=== PATIENT | male | born 1945 | race Caucasian/White ===

== ENCOUNTER 2020-07-26 06:41 | Inpatient (IN) ==
[2020-07-26] MEDS ORDERED: IOPAMIDOL 100 ML BOTTLE IV ONE ×2 (06:42→14:48)
[2020-07-26] MEDS ORDERED: 0.9 % SODIUM CHLORIDE 1,000 ML IV ONE ×6 (07:11→14:48)
--- NOTE | 2020-07-26 07:19 | Emergency Department Note ---
Weakness HPI General Chief complaint: Weakness Stated complaint: took several pills Time Seen by Provider: 07/26/20 06:51 Source: patient, family, RN notes reviewed and old records reviewed Mode of arrival: wheelchair Limitations: no limitations History of Present Illness HPI Narrative: Narrative: 75-year-old male brought in by this morning for weakness. Patient was on the toilet and had difficulty standing up and fell to his right knee. Patient states that he has not been drinking for quite some time and started drinking last night secondary to his back pain. Patient then took 6 hydrocodone, Mucinex, cough syrup. Patient complains of feeling sleepy and tired and weak all over he denies focal weakness he denies loss of bowel or bladder control he denies difficulty with speaking other than he feels very sleepy. He denies suicidal ideation or intent to harm himself he states that he just wanted his back to stop hurting in his he could go to sleep MD Complaint: generalized weakness and lack of energy Onset (ago): hour(s) (Night prior to arrival) Duration: now resolved Location: generalized Migration: none Severity: moderate Improves with: rest Worsens with: exertion Context: other Associated symptoms: Denies chest pain, confusion, dark stools, diaphoresis, dysuria, easy bruising, fever/chills, headaches, loss of appetite, nausea/vomiting, myalgias, rash, shortness of breath and syncope Related Data Home Medications Medication Instructions Recorded Confirmed amlodipine 10 mg PO HS 08/27/14 03/30/20 aspirin 81 mg PO HS 08/27/14 03/30/20 cetirizine 10 mg PO DAILY 08/27/14 03/30/20 fluticasone propionate 2 spray NS DAILY 08/27/14 03/30/20 hydrochlorothiazide 25 mg PO DAILY 08/27/14 03/30/20 losartan 100 mg PO DAILY 08/27/14 03/30/20 milk thistle 1,000 mg PO DAILY 08/27/14 03/30/20 mometasone-formoterol 2 puff IH BIDP PRN 08/27/14 03/30/20 pantoprazole 40 mg PO QAMAC 08/27/14 03/30/20 fluticasone propion-salmeterol 1 puff INH DAILY 12/03/14 03/30/20 sildenafil 50 mg PO PRN PRN 12/03/14 03/30/20 acyclovir 400 mg tablet 200 mg PO BID tab 01/20/17 03/30/20 lovastatin 10 mg tablet 20 mg PO HS tab 01/20/17 03/30/20 Previous Rx's Medication Instructions Recorded mirtazapine 15 mg tablet See Rx Instructions .ROUTE 12/31/19 .COMPLEX #30 tablet gabapentin 300 mg capsule See Rx Instructions .ROUTE 07/07/20 .COMPLEX #90 capsule naltrexone 50 mg tablet 50 mg PO QDAY #30 tab 07/07/20 Allergies Allergy/AdvReac Type Severity Reaction Status Date / Time doxycycline AdvReac Mild Fatigued Verified 07/26/20 06:53 milk AdvReac Mild Nausea Verified 07/26/20 06:53 environmental Allergy Unknown Unknown Uncoded 07/18/20 14:58 MSG Allergy Unknown Unconscious Uncoded 07/18/20 14:58 Review of Systems ROS ROS Narrative: Narrative: All systems ED: reviewed and negative except as stated. [facility] Narrative Patient History Narrative: Narrative: Medical/Surgical/Family History All Active Problems (Updated 07/26/20 @ 12:28 by Micah Ulloa MD) Hypoxia (Acute) Hypotension (Acute) Overdose (Acute) Pulmonary emboli (Acute) Acute URI (Acute) Pharyngitis (Acute) Arthritis (Acute) Benign prostatic hypertrophy with lower urinary tract symptoms (LUTS) (Acute) DDD (degenerative disc disease) (Acute) Headache (Acute) Hearing loss (Acute) Hernia of abdominal cavity (Acute) Shingles (Acute) Hyperlipidemia (Acute) Hypertension (Acute) Nocturia (Acute) Post-void dribbling (Acute) Chronic sinusitis (Acute) Peptic ulcer (Acute) Urinary hesitancy (Acute) History of hernia surgery (Acute) Lumbar stenosis (Acute) Chest pain of unknown etiology (Acute) Uvulitis (Acute) Viral upper respiratory tract infection (Acute) Dizziness (Acute) Abscess (Acute) Alcohol withdrawal delirium (Acute) Alcohol withdrawal (Acute) Sedative hypnotic or anxiolytic dependence (Acute) Insomnia (Acute) Alcohol use disorder, mild, in sustained remission, abuse (Acute) Sedative hypnotic or anxiolytic dependence (Acute) Insomnia (Acute) Medical History (Updated 07/26/20 @ 12:28 by Micah Ulloa MD) Arthritis Benign prostatic hypertrophy with lower urinary tract symptoms (LUTS) Chest pain of unknown etiology Chronic sinusitis DDD (degenerative disc disease) Headache Hearing loss Hernia of abdominal cavity Hyperlipidemia Hypertension Lumbar stenosis Nocturia Peptic ulcer Post-void dribbling Shingles Urinary hesitancy Surgical History History of hernia surgery 2005 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 Family History Mother Rheumatoid arthritis Brother Acute myocardial infarction Father Pneumonia Unknown Essential hypertension affecting in third trimester Family/Other Alcoholism /alcohol abuse Social History Smoking Status: Former smoker Alcohol Intake Frequency: former alcohol drinker Substance Use: does not use Exam Narrative Narrative: Narrative: General Limitations: no limitations General appearance: Present appears intoxicated, in no apparent distress, lethargic and obese Head Head: Present atraumatic, normocephalic and normal inspection Eye Eye: Present normal appearance, PERRL and EOMI; Absent scleral icterus and conjunctival injection ENT ENT: Present normal oropharynx and mucous membranes moist Neck Neck: Present normal inspection, full ROM and trachea midline; Absent tenderness, lymphadenopathy and thyromegaly Chest Chest: Present normal inspection and symmetric chest wall rise; Absent tenderness Respiratory Respiratory: Present wheezes; Absent normal lung sounds bilaterally, respiratory distress, stridor, accessory muscle use and prolonged expiratory phase Cardiovascular Cardiovascular: Present regular rate and normal rhythm; Absent systolic murmur and diastolic murmur Adbominal Abdominal: Present soft and normal bowel sounds; Absent distention, tenderness, guarding, rebound, rigidity, organomegaly, Dyer's sign, tenderness at McBurney's Point, ascites, mass, pulsatile mass and hernia Extremities Extremities: Present normal inspection, full ROM, tenderness, normal capillary refill and other (Abrasion to left knee); Absent pedal edema, pretibial edema and calf tenderness Back Back: Present normal inspection and full ROM; Absent tenderness, CVA tenderness (R), CVA tenderness (L) and spinous process tenderness Neurological Neurological: Present alert and oriented X3; Absent motor sensory deficit Psychiatric Psychiatric: Present normal affect and normal mood Skin Skin: Present warm (WNL) and dry Course Vital Signs Vital signs: Vital Signs Temperature 98.0 F 07/26/20 06:44 Pulse Rate 81 07/26/20 06:44 Respiratory Rate 18 07/26/20 06:44 Blood Pressure 132/70 07/26/20 06:44 Pulse Oximetry (%) 93 07/26/20 06:44 Temperature 97.9 F 07/26/20 08:15 Pulse Rate 93 H 07/26/20 10:31 Respiratory Rate 18 07/26/20 10:31 Blood Pressure 120/73 07/26/20 10:31 Pulse Oximetry (%) 95 07/26/20 10:31 MDM MDM Narrative Medical decision making narrative: Narrative: 75-year-old male with polysubstance overdose unintentional and not suicidal. He continues to run low blood pressures after repeated fluid boluses and is hypoxic when he is not on O2 this male be a result of his hydrocodone overdose and he has a nonfocal exam but chest x-ray is without pneumonia. I do not feel that he is stable for discharge and will need to be on oxygen and IV fluids to maintain his blood pressure and O2 saturation. CTA is positive for PE with small clot volume and groundglass infiltrates Differential Diagnosis Differential Diagnosis: Overdose, pneumonia, PE, pneumothorax, ARDS, COPD, Medical Records Medical records reviewed: Yes I reviewed the patient's medical records. Lab Data Lab results reviewed: Yes I reviewed the patient's lab results. Result diagrams: 07/26/20 07:20 07/26/20 07:20 Labs: Lab Results 07/26/20 07/26/20 07/26/20 Range/Units 07:20 07:20 07:20 WBC 18.1 H (4.5-11.0) K/mcL RBC 4.42 L (4.50-5.90) M/mcL Hgb 12.6 L (13.5-16.5) g/dL Hct 37.9 L (41.0-55.0) % MCV 85.7 (80.0-100.0) fL MCH 28.5 (26.0-34.0) pg MCHC 33.2 (31.0-36.0) g/dL RDW 14.9 H (11.5-14.5) % Plt Count 376 (140-440) K/mcL MPV 9.7 (7.4-10.4) fL Neut % (Auto) 80.6 H (38.0-78.0) % Lymph % (Auto) 11.5 L (15.0-49.0) % [place] % (Auto) 7.1 (1.0-12.0) % Eos % (Auto) 0.6 (0.0-7.0) % Baso % (Auto) 0.2 (0.0-2.0) % Lymph # (Auto) 2.08 (1.50-4.80) K/mcL [place] # (Auto) 1.29 H (0.10-0.90) K/mcL Eos # (Auto) 0.11 (0.00-0.70) K/mcL Baso # (Auto) 0.03 (0.00-0.20) K/mcL Absolute Neutrophils 14.55 H (1.80-8.00) K/mcL VBG Lactic Acid (0.5-2.0) mmol/L Sodium 127 L (133-145) mmol/L Potassium 3.0 L (3.3-5.1) mmol/L Chloride 94 L (96-108) mmol/L Carbon Dioxide 14 L (22-30) mmol/L Anion Gap 19.0 H (8.0-16.0) BUN 18 (8-23) mg/dL Creatinine 1.2 (0.7-1.2) mg/dL GFR Calculation 60 Glucose 102 (70-105) mg/dL Calcium 7.3 L (8.6-10.4) mg/dL Total Bilirubin 0.3 (0.1-1.0) mg/dL AST 18 (<40) U/L ALT 13 (<40) U/L Alkaline Phosphatase 86 (39-117) U/L Troponin T < 0.01 (<0.03) ng/mL Total Protein 5.9 (5.9-8.4) gm/dL Albumin 3.5 (3.2-5.2) gm/dL Globulin 2.4 (2.2-3.7) gm/dL Albumin/Globulin Ratio 1.5 (1.0-2.3) Urine Color Urine Appearance (Clear) Urine pH (5.0-9.0) Ur Specific [place] (1.000-1.035) Urine Protein (Negative) mg/dL Urine Glucose (UA) (Negative) mg/dL Urine Ketones (Negative) mg/dL Urine Occult Blood (Negative) mg/dL Urine Nitrate (Negative) Urine Bilirubin (Negative) mg/dL Urine Urobilinogen mg/dL Ur Leukocyte Esterase (Negative) /ug Urine Opiates Screen Ur Opiates Confirm Ur Oxycodone Screen Urine Methadone Screen Ur Methadone Confirm Acetaminophen ug/mL Ur Barbiturates Screen Ur Barbiturate Confirm Ur Phencyclidine Scrn Urine PCP Confirm Ur Amphetamines Screen U Amphetamines Confirm U Benzodiazepines Scrn U Benzodiazepine Confm Urine Cocaine Screen Urine Cocaine Confirm U Cannabinoids Confirm U Marijuana (THC) Screen Ethyl Alcohol (<0.010) gm/dL 07/26/20 07/26/20 07/26/20 Range/Units 07:20 07:26 10:25 WBC (4.5-11.0) K/mcL RBC (4.50-5.90) M/mcL Hgb (13.5-16.5) g/dL Hct (41.0-55.0) % MCV (80.0-100.0) fL MCH (26.0-34.0) pg MCHC (31.0-36.0) g/dL RDW (11.5-14.5) % Plt Count (140-440) K/mcL MPV (7.4-10.4) fL Neut % (Auto) (38.0-78.0) % Lymph % (Auto) (15.0-49.0) % [place] % (Auto) (1.0-12.0) % Eos % (Auto) (0.0-7.0) % Baso % (Auto) (0.0-2.0) % Lymph # (Auto) (1.50-4.80) K/mcL [place] # (Auto) (0.10-0.90) K/mcL Eos # (Auto) (0.00-0.70) K/mcL Baso # (Auto) (0.00-0.20) K/mcL Absolute Neutrophils (1.80-8.00) K/mcL VBG Lactic Acid (0.5-2.0) mmol/L Sodium (133-145) mmol/L Potassium (3.3-5.1) mmol/L Chloride (96-108) mmol/L Carbon Dioxide (22-30) mmol/L Anion Gap (8.0-16.0) BUN (8-23) mg/dL Creatinine (0.7-1.2) mg/dL GFR Calculation Glucose (70-105) mg/dL Calcium (8.6-10.4) mg/dL Total Bilirubin (0.1-1.0) mg/dL AST (<40) U/L ALT (<40) U/L Alkaline Phosphatase (39-117) U/L Troponin T (<0.03) ng/mL Total Protein (5.9-8.4) gm/dL Albumin (3.2-5.2) gm/dL Globulin (2.2-3.7) gm/dL Albumin/Globulin Ratio (1.0-2.3) Urine Color Urine Appearance (Clear) Urine pH (5.0-9.0) Ur Specific [place] (1.000-1.035) Urine Protein (Negative) mg/dL Urine Glucose (UA) (Negative) mg/dL Urine Ketones (Negative) mg/dL Urine Occult Blood (Negative) mg/dL Urine Nitrate (Negative) Urine Bilirubin (Negative) mg/dL Urine Urobilinogen mg/dL Ur Leukocyte Esterase (Negative) /ug Urine Opiates Screen None detected Ur Opiates Confirm TNP Ur Oxycodone Screen None detected Urine Methadone Screen None detected Ur Methadone Confirm TNP Acetaminophen 8.7 ug/mL Ur Barbiturates Screen None detected Ur Barbiturate Confirm TNP Ur Phencyclidine Scrn None detected Urine PCP Confirm TNP Ur Amphetamines Screen None detected U Amphetamines Confirm TNP U Benzodiazepines Scrn None detected U Benzodiazepine Confm TNP Urine Cocaine Screen None detected Urine Cocaine Confirm TNP U Cannabinoids Confirm TNP U Marijuana (THC) Screen None detected Ethyl Alcohol 0.055 H (<0.010) gm/dL 07/26/20 07/26/20 Range/Units 10:25 10:40 WBC (4.5-11.0) K/mcL RBC (4.50-5.90) M/mcL Hgb (13.5-16.5) g/dL Hct (41.0-55.0) % MCV (80.0-100.0) fL MCH (26.0-34.0) pg MCHC (31.0-36.0) g/dL RDW (11.5-14.5) % Plt Count (140-440) K/mcL MPV (7.4-10.4) fL Neut % (Auto) (38.0-78.0) % Lymph % (Auto) (15.0-49.0) % [place] % (Auto) (1.0-12.0) % Eos % (Auto) (0.0-7.0) % Baso % (Auto) (0.0-2.0) % Lymph # (Auto) (1.50-4.80) K/mcL [place] # (Auto) (0.10-0.90) K/mcL Eos # (Auto) (0.00-0.70) K/mcL Baso # (Auto) (0.00-0.20) K/mcL Absolute Neutrophils (1.80-8.00) K/mcL VBG Lactic Acid 1.7 (0.5-2.0) mmol/L Sodium (133-145) mmol/L Potassium (3.3-5.1) mmol/L Chloride (96-108) mmol/L Carbon Dioxide (22-30) mmol/L Anion Gap (8.0-16.0) BUN (8-23) mg/dL Creatinine (0.7-1.2) mg/dL GFR Calculation Glucose (70-105) mg/dL Calcium (8.6-10.4) mg/dL Total Bilirubin (0.1-1.0) mg/dL AST (<40) U/L ALT (<40) U/L Alkaline Phosphatase (39-117) U/L Troponin T (<0.03) ng/mL Total Protein (5.9-8.4) gm/dL Albumin (3.2-5.2) gm/dL Globulin (2.2-3.7) gm/dL Albumin/Globulin Ratio (1.0-2.3) Urine Color Yellow Urine Appearance Clear (Clear) Urine pH 5.0 (5.0-9.0) Ur Specific [place] 1.014 (1.000-1.035) Urine Protein Negative (Negative) mg/dL Urine Glucose (UA) Negative (Negative) mg/dL Urine Ketones Negative (Negative) mg/dL Urine Occult Blood Negative (Negative) mg/dL Urine Nitrate Negative (Negative) Urine Bilirubin Negative (Negative) mg/dL Urine Urobilinogen Negative mg/dL Ur Leukocyte Esterase Negative (Negative) /ug Urine Opiates Screen Ur Opiates Confirm Ur Oxycodone Screen Urine Methadone Screen Ur Methadone Confirm Acetaminophen ug/mL Ur Barbiturates Screen Ur Barbiturate Confirm Ur Phencyclidine Scrn Urine PCP Confirm Ur Amphetamines Screen U Amphetamines Confirm U Benzodiazepines Scrn U Benzodiazepine Confm Urine Cocaine Screen Urine Cocaine Confirm U Cannabinoids Confirm U Marijuana (THC) Screen Ethyl Alcohol (<0.010) gm/dL Radiology Data Radiology results reviewed: Yes I reviewed the patient's radiology results. Radiology results narrative: Chest x-ray NAD EKG Data EKG #1: EKG attestation: Yes I reviewed and interpreted this EKG. EKG shows normal: sinus rhythm Rate: normal (79) Rhythm: NSR [place]/QRS: normal Heart block present: None ST segment elevation in: None ST segment depression in: None Q waves: None T wave inversions noted in: None Hyperacute T waves: None QTc: normal QRS morphology: Present normal Interpretation: normal EKG Pulse Oximetry Data Pulse Ox %: 84 Interpretation: The patient is hypoxic when he is not on oxygen Discharge Plan Patient/Caregiver Discharge Instructions Pt seen by SOFTWARE LICENSING SPECIALIST/PA only: No Clinical Impression: Hypoxia, Hypotension, Overdose, Pulmonary emboli Patient Disposition: Xfer As Inpt ([facility]) Follow up with: Blanca James MD [Primary Care Provider] - Prescriptions: No Action mirtazapine 15 mg tablet See Rx Instructions .ROUTE .COMPLEX Qty: 30 RF: 2 naltrexone 50 mg tablet 50 mg PO QDAY Qty: 30 RF: 2 gabapentin 300 mg capsule See Rx Instructions .ROUTE .COMPLEX Qty: 90 RF: 2 acyclovir 400 mg tablet 200 mg PO BID RF: 0 cetirizine 10 MG tablet 10 mg PO DAILY RF: 0 milk thistle 500 MG capsule 1,000 mg PO DAILY RF: 0 aspirin 81 MG tablet,delayed release (DR/EC) 81 mg PO HS RF: 0 amlodipine 10 MG tablet 10 mg PO HS RF: 0 pantoprazole 40 MG tablet 40 mg PO QAMAC RF: 0 hydrochlorothiazide 25 MG tablet 25 mg PO DAILY RF: 0 losartan 100 MG tablet 100 mg PO DAILY RF: 0 fluticasone propionate 1 SPRAY spray,suspension 2 spray NS DAILY RF: 0 mometasone-formoterol 13 GM HFA aerosol inhaler 2 puff IH BIDP PRN (Reason: Cough) RF: 0 lovastatin 10 MG tablet 20 mg PO HS RF: 0 fluticasone propion-salmeterol 1 PUFF inhaler 1 puff INH DAILY RF: 0 sildenafil 50 MG tablet 50 mg PO PRN PRN (Reason: Erectile Dysfunction) RF: 0
[2020-07-26] MEDS ORDERED: ALBUTEROL SULFATE 2.5 MG/3 ML NEBULIZER NEB ONE (07:50)
[2020-07-26] MEDS ORDERED: ONDANSETRON 4 MG/2 ML VIAL IV ONE ×2 (08:18→14:48)
[2020-07-26 08:22] LABS: Basophils # (Auto) 0.03 K/mcL (0.00-0.20); Basophils % (Auto) 0.2 % (0.0-2.0); Eosinophils # (Auto) 0.11 K/mcL (0.00-0.70); Eosinophils % (Auto) 0.6 % (0.0-7.0); Hematocrit 37.9 % (41.0-55.0); Hemoglobin 12.6 g/dL (13.5-16.5); Lymphocytes # (Auto) 2.08 K/mcL (1.50-4.80); Lymphocytes % (Auto) 11.5 % (15.0-49.0); Mean Cell Volume 85.7 fL (80.0-100.0); Mean Corpuscular HGB Conc 33.2 g/dL (31.0-36.0); Mean Platelet Volume 9.7 fL (7.4-10.4); Monocytes # (Auto) 1.29 K/mcL (0.10-0.90); Monocytes % (Auto) 7.1 % (1.0-12.0); Neutrophils % (Auto) 80.6 % (38.0-78.0); Platelet Count 376 K/mcL (140-440); RBC 4.42 M/mcL (4.50-5.90); Red Cell Distribution Width 14.9 % (11.5-14.5); WBC 18.1 K/mcL (4.5-11.0)
[2020-07-26 08:25] LABS: Alcohol,Blood 0.055 gm/dL (<0.010)
--- NOTE | 2020-07-26 08:29 | XRay Report ---
INDICATION: Weakness TECHNIQUE: AP portable semi- chest x-ray COMPARISON: Previous chest x-rays dated 05/06/2019, 12/26/2018 FINDINGS: Lungs:Lungs are negative. No focal pulmonary parenchymal infiltrate or mass Heart, vascular:No significant cardiomegaly. Pulmonary vascularity is normal. No pulmonary edema or pulmonary congestion Mediastinum, shiva:No mediastinal widening. No hilar mass Pleura:No pleural fluid. No pleural-based mass or calcification Skeletal:Previous left reverse shoulder arthroplasty. No acute abnormality IMPRESSION: 1. No acute abnormality. 2. No interval change Interpreted and Authenticated by: Juan A Swain 07/26/20
[2020-07-26 08:36] LABS: ALT/SGPT 13 U/L (<40); AST/SGOT 18 U/L (<40); Albumin 3.5 gm/dL (3.2-5.2); Albumin/Globulin Ratio 1.5 (1.0-2.3); Alkaline Phosphatase 86 U/L (39-117); Bilirubin,Total 0.3 mg/dL (0.1-1.0); Blood Urea Nitrogen 18 mg/dL (8-23); Calcium 7.3 mg/dL (8.6-10.4); Carbon Dioxide 14 mmol/L (22-30); Chloride 94 mmol/L (96-108); Globulin 2.4 gm/dL (2.2-3.7); Glomerular Filtration Rate 60; Glucose 102 mg/dL (70-105)
[2020-07-26] MEDS ORDERED: cefTRIAXone 1 GM VIAL IV ONE (10:15)
[2020-07-26] MEDS ORDERED: AZITHROMYCIN 500 MG in DEXTROSE 5% IN WATER 250 ML IV ONE (10:15)
[2020-07-26 11:31] LABS: Appearance,Urine CLEAR (Clear); Bilirubin,Urine Negative (Negative); Color,Urine YELLOW; Glucose,Urine (UA) Negative (Negative); Ketones,Urine Negative (Negative); Leukocyte Esterase,Urine Negative /ug (Negative); Nitrate,Urine Negative (Negative); Protein,Urine Negative (Negative); Specific Gravity,Urine 1.014 (1.000-1.035); Urine Blood Negative (Negative); Urobilinogen,Urine Negative
[2020-07-26 11:37] LABS: Amphetamine Screen,Urine None detected; Barbiturate Screen,Urine None detected; Benzodiazepines Screen,Urine None detected; Cannabinoid Screen,Urine None detected; Cocaine Screen,Urine None detected; Opiate Screen,Urine None detected; Oxycodone, Urine Screen None detected; Phencyclidine Screen,Urine None detected
--- NOTE | 2020-07-26 11:55 | Cat Scan Report ---
INDICATION: Hypoxia COMPARISON: Previous chest x-rays dated 07/26/2020, 05/06/2019 TECHNIQUE: Axial images obtained through the chest. 80ml Isovue 370 injected intravenously, and scanning was performed during pulmonary arterial phase. Sagittally and coronally reformatted images were obtained. MIP reformatted images. FINDINGS: Lungs:Mild bilateral groundglass infiltrates with a predominantly peripheral distribution. Appearance is consistent with interstitial pneumonia and covid pneumonia is suspected. Mediastinum, vascular:There is embolic material within the lateral segmental branch of the right middle lobe. No other definite clot. There is possible thrombus within the apical segmental branch of the right upper lobe. This is not considered definite. No other intraluminal thrombi. No pathologic mediastinal adenopathy. There is mild hilar adenopathy which may be reactive. Heart:No cardiomegaly. No pericardial effusion. There is calcified coronary artery disease Pleura:There are multiple small calcified pleural plaques which may be related to asbestos exposure. There is no pleural fluid. No pneumothorax. Axilla, supraclavicular regions, chest wall: No pathologic adenopathy. No soft tissue mass. No supraclavicular adenopathy Musculoskeletal:Negative thoracic spine. No compression fracture. No lytic lesion. No rib or sternal lesions Upper Abdomen:There is a moderate hiatal hernia. There is a large cyst in the superior pole the right kidney IMPRESSION: 1. Positive examination for pulmonary embolism. Small clot volume 2. Groundglass infiltrates. Covid pneumonia is possible 3. Moderate hiatal hernia 4. Calcified pleural plaques The exam was performed using radiation dose optimization techniques including, but not limited to, automated exposure control, adjustment of the mA and/or kV according to patient size and use of iterative reconstruction technique. Interpreted and Authenticated by: Juan A Swain 07/26/20
[2020-07-26] MEDS ORDERED: APIXABAN 5 MG TABLET PO ONE (12:29)
[2020-07-26] MEDS ORDERED: ONDANSETRON 4 MG/2 ML VIAL IV PRN (13:22)
[2020-07-26] MEDS ORDERED: IPRATROPIUM/ALBUTEROL 3 ML AMPUL.NEB NEB PRN (13:22)
[2020-07-26] MEDS ORDERED: NALOXONE HCL 0.4 MG/ML VIAL IV PRN (13:22)
[2020-07-26] MEDS ORDERED: cefTRIAXone 1 GM in DEXTROSE 5% IN WATER 50 ML IV SCH (13:30)
--- NOTE | 2020-07-26 13:40 | Internal Med History&Physical ---
HPI History of Present Illness Patient information: Note initiated : 07/26/20 at 1:33 pm Service Date, if different from initiated Date: [] Patient: Krish Noyola a 75 y/o M admitted on for took several pills. Chief Complaint: [weakness and lethargy] History of present illness: Mr. Noyola is a 75 year old M man h/o hypertensions, multiple osteoarthritis, presenting with weakness and lethargy after medication overdose. There was no prior similar episode. Patient has been taking 6 pills of hydrocodone, as well as uncountable amount of Mucinex and cough syrup for cough and back pain over the past 24 hours. Patient has also been drinking 12 packs of beers per day for the past couple of weeks with last consumptions yesterday midnight. Patient was noted by to be more lethargic and minimally responsive to voice, so EMS was called to send patients to our ED for further evaluation and treatments. Patient is currently denies any back pain or shortness of breath. He however is complaining of productive cough with right or bae sputum. He denies any fever or shaking chills. He denies any chest pain. He denies any confusions. He denies any suicidal ideation or attempts and claims that the consumptions of the drugs were solely for the purpose of pain controlled. Labs significant for leukocytosis with WBC 18. Chest x-ray unremarkable. CT angiogram showing left middle lobe peripheral pulmonary embolisms. It also suggested groundglass appearance concerning for pneumonia versus Covid pneumonia. Constitutional Constitutional: Absent chills, excessive sweating, fatigue, fever(s) and weakness EENT Eyes: Absent blurry vision, change in vision, loss of vision and other visual disturbances Ears: Absent decreased hearing and tinnitus Nose, mouth and throat: Absent abnormal hearing, dry mouth, headache(s), nasal congestion and sore throat Cardiovascular Cardiovascular: Absent chest pain, chest pain at rest, edema, irregular heart rhythm and palpatations Respiratory Respiratory: Present cough and excessive phlegm production; Absent dyspnea and wheezing Gastrointestinal Gastrointestinal: Absent abdominal pain, constipation, diarrhea, nausea and vomiting Musculoskeletal Musculoskeletal: Absent back pain, deformity, limited range of motion, muscle cramps, muscle weakness and numbness Integumentary Integumentary: Absent lesions, rash and wounds Neurological Neurological: Absent focal weakness, headache(s) and numbness Psychiatric Psychiatric: Absent anxiety, depression and hallucinations [facility] All Active Problems (Updated 07/26/20 @ 13:45 by Juno Grissom MD) Anemia, normocytic normochromic (Acute) Suspected COVID-19 virus infection (Acute) Pneumonia (Acute) Hypoxia (Acute) Hypotension (Acute) Overdose (Acute) Pulmonary emboli (Acute) Acute URI (Acute) Pharyngitis (Acute) Arthritis (Acute) Benign prostatic hypertrophy with lower urinary tract symptoms (LUTS) (Acute) DDD (degenerative disc disease) (Acute) Headache (Acute) Hearing loss (Acute) Hernia of abdominal cavity (Acute) Shingles (Acute) Hyperlipidemia (Acute) Hypertension (Acute) Nocturia (Acute) Post-void dribbling (Acute) Chronic sinusitis (Acute) Peptic ulcer (Acute) Urinary hesitancy (Acute) History of hernia surgery (Acute) Lumbar stenosis (Acute) Chest pain of unknown etiology (Acute) Uvulitis (Acute) Viral upper respiratory tract infection (Acute) Dizziness (Acute) Abscess (Acute) Alcohol withdrawal delirium (Acute) Alcohol withdrawal (Acute) Sedative hypnotic or anxiolytic dependence (Acute) Insomnia (Acute) Alcohol use disorder, mild, in sustained remission, abuse (Acute) Sedative hypnotic or anxiolytic dependence (Acute) Insomnia (Acute) Medical History (Updated 07/26/20 @ 13:45 by Juno Grissom MD) Arthritis Benign prostatic hypertrophy with lower urinary tract symptoms (LUTS) Chest pain of unknown etiology Chronic sinusitis DDD (degenerative disc disease) Headache Hearing loss Hernia of abdominal cavity Hyperlipidemia Hypertension Lumbar stenosis Nocturia Peptic ulcer Post-void dribbling Shingles Urinary hesitancy Surgical History History of hernia surgery 2006 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 Family History Mother Rheumatoid arthritis Brother Acute myocardial infarction Father Pneumonia Unknown Essential hypertension affecting in third trimester Family/Other Alcoholism /alcohol abuse Social History occupational status: 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, 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, 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, 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 alcohol intake frequency: former alcohol drinker substance use type: does not use MEDS/ALLERGIES Home Medications and Allergies Home Medications Medication Instructions Recorded Confirmed Type amlodipine 10 mg PO HS 08/27/14 07/26/20 History aspirin 81 mg PO HS 08/27/14 07/26/20 History cetirizine 10 mg PO DAILY 08/27/14 07/26/20 History hydrochlorothiazide 25 mg PO DAILY 08/27/14 07/26/20 History losartan 100 mg PO DAILY 08/27/14 07/26/20 History milk thistle 1,000 mg PO DAILY 08/27/14 07/26/20 History mometasone-formoterol 2 puff IH BIDP PRN 08/27/14 07/26/20 History pantoprazole 40 mg PO QAMAC 08/27/14 07/26/20 History fluticasone propion-salmeterol 1 puff INH DAILY 12/03/14 07/26/20 History sildenafil 50 mg PO PRN PRN 12/03/14 07/26/20 History acyclovir 400 mg tablet 200 mg PO BID tab 01/20/17 07/26/20 History lovastatin 10 mg tablet 20 mg PO HS tab 01/20/17 07/26/20 History mirtazapine 15 mg tablet See Rx Instructions .ROUTE 12/31/19 07/26/20 Rx .COMPLEX #30 tablet gabapentin 300 mg capsule See Rx Instructions .ROUTE 07/07/20 07/26/20 Rx .COMPLEX #90 capsule naltrexone 50 mg tablet 50 mg PO QDAY #30 tab 07/07/20 07/26/20 Rx benzonatate 200 mg PO TID 07/26/20 07/26/20 History hydrocodone-acetaminophen 5 - 325 tab PO Q4-6HP PRN 07/26/20 07/26/20 History Allergies Allergy/AdvReac Type Severity Reaction Status Date / Time doxycycline AdvReac Mild Fatigued Verified 07/26/20 06:53 milk AdvReac Mild Nausea Verified 07/26/20 06:53 environmental Allergy Unknown Unknown Uncoded 07/18/20 14:58 MSG Allergy Unknown Unconscious Uncoded 07/18/20 14:58 EXAM Constitutional Vitals: Temp Pulse Resp BP Pulse Ox 36.6 C 93 H 18 120/73 95 07/26/20 08:15 07/26/20 10:31 07/26/20 10:31 07/26/20 10:31 07/26/20 10:31 General appearance: cooperative and no acute distress Head Head exam: Present atraumatic and normocephalic Eye Eye exam: Present EOMI and PERRL ENT ENT exam: Present mucous membranes moist, normal exam and normal external ear exam Additional comments: Nasal cannula in place Neck Neck exam: Present normal inspection; Absent lymphadenopathy, tenderness and thyromegaly Respiratory Respiratory exam: Present rhonchi and wheezes; Absent accessory muscle use and respiratory distress Cardiovascular Cardiovascular exam: Present normal rate and rhythm; Absent JVD GI/Abdominal GI/Abdominal exam: Present normal bowel sounds and soft; Absent organomegaly and tenderness Rectal Rectal exam: Present deferred Extremities Exam Extremities exam: Present full ROM, normal capillary refill and normal inspection; Absent tenderness Neurological Exam Neurological exam: Present alert, CN II-XII intact and oriented X3; Absent motor sensory deficit Psychiatric Psychiatric exam: Present normal affect and normal mood; Absent anxious and depressed Skin Skin exam: Present dry and intact DATA Data Completed and Pending Labs: Labs from last 24 hours 07/26/20 07/26/20 07/26/20 10:40 10:25 10:25 WBC RBC Hgb Hct MCV MCH MCHC RDW Plt Count MPV Neut % (Auto) Lymph % (Auto) [place] % (Auto) Eos % (Auto) Baso % (Auto) Lymph # (Auto) [place] # (Auto) Eos # (Auto) Baso # (Auto) Absolute Neutrophils VBG Lactic Acid 1.7 Sodium Potassium Chloride Carbon Dioxide Anion Gap BUN Creatinine GFR Calculation Glucose Calcium Total Bilirubin AST ALT Alkaline Phosphatase Troponin T Total Protein Albumin Globulin Albumin/Globulin Ratio Urine Color Yellow Urine Appearance Clear Urine pH 5.0 Ur Specific [place] 1.014 Urine Protein Negative Urine Glucose (UA) Negative Urine Ketones Negative Urine Occult Blood Negative Urine Nitrate Negative Urine Bilirubin Negative Urine Urobilinogen Negative Ur Leukocyte Esterase Negative Urine Opiates Screen None detected Ur Opiates Confirm TNP Ur Oxycodone Screen None detected Urine Methadone Screen None detected Ur Methadone Confirm TNP Acetaminophen Ur Barbiturates Screen None detected Ur Barbiturate Confirm TNP Ur Phencyclidine Scrn None detected Urine PCP Confirm TNP Ur Amphetamines Screen None detected U Amphetamines Confirm TNP U Benzodiazepines Scrn None detected U Benzodiazepine Confm TNP Urine Cocaine Screen None detected Urine Cocaine Confirm TNP U Cannabinoids Confirm TNP U Marijuana (THC) Screen None detected Drug Screen Specimen Ethyl Alcohol 07/26/20 07/26/20 07/26/20 07:26 07:20 07:20 WBC RBC Hgb Hct MCV MCH MCHC RDW Plt Count MPV Neut % (Auto) Lymph % (Auto) [place] % (Auto) Eos % (Auto) Baso % (Auto) Lymph # (Auto) [place] # (Auto) Eos # (Auto) Baso # (Auto) Absolute Neutrophils VBG Lactic Acid Sodium Potassium Chloride Carbon Dioxide Anion Gap BUN Creatinine GFR Calculation Glucose Calcium Total Bilirubin AST ALT Alkaline Phosphatase Troponin T < 0.01 Total Protein Albumin Globulin Albumin/Globulin Ratio Urine Color Urine Appearance Urine pH Ur Specific [place] Urine Protein Urine Glucose (UA) Urine Ketones Urine Occult Blood Urine Nitrate Urine Bilirubin Urine Urobilinogen Ur Leukocyte Esterase Urine Opiates Screen Ur Opiates Confirm Ur Oxycodone Screen Urine Methadone Screen Ur Methadone Confirm Acetaminophen 8.7 Ur Barbiturates Screen Ur Barbiturate Confirm Ur Phencyclidine Scrn Urine PCP Confirm Ur Amphetamines Screen U Amphetamines Confirm U Benzodiazepines Scrn U Benzodiazepine Confm Urine Cocaine Screen Urine Cocaine Confirm U Cannabinoids Confirm U Marijuana (THC) Screen Drug Screen Specimen Pending Ethyl Alcohol 0.055 H 07/26/20 07/26/20 07:20 07:20 WBC 18.1 H RBC 4.42 L Hgb 12.6 L Hct 37.9 L MCV 85.7 MCH 28.5 MCHC 33.2 RDW 14.9 H Plt Count 376 MPV 9.7 Neut % (Auto) 80.6 H Lymph % (Auto) 11.5 L [place] % (Auto) 7.1 Eos % (Auto) 0.6 Baso % (Auto) 0.2 Lymph # (Auto) 2.08 [place] # (Auto) 1.29 H Eos # (Auto) 0.11 Baso # (Auto) 0.03 Absolute Neutrophils 14.55 H VBG Lactic Acid Sodium 127 L Potassium 3.0 L Chloride 94 L Carbon Dioxide 14 L Anion Gap 19.0 H BUN 18 Creatinine 1.2 GFR Calculation 60 Glucose 102 Calcium 7.3 L Total Bilirubin 0.3 AST 18 ALT 13 Alkaline Phosphatase 86 Troponin T Total Protein 5.9 Albumin 3.5 Globulin 2.4 Albumin/Globulin Ratio 1.5 Urine Color Urine Appearance Urine pH Ur Specific [place] Urine Protein Urine Glucose (UA) Urine Ketones Urine Occult Blood Urine Nitrate Urine Bilirubin Urine Urobilinogen Ur Leukocyte Esterase Urine Opiates Screen Ur Opiates Confirm Ur Oxycodone Screen Urine Methadone Screen Ur Methadone Confirm Acetaminophen Ur Barbiturates Screen Ur Barbiturate Confirm Ur Phencyclidine Scrn Urine PCP Confirm Ur Amphetamines Screen U Amphetamines Confirm U Benzodiazepines Scrn U Benzodiazepine Confm Urine Cocaine Screen Urine Cocaine Confirm U Cannabinoids Confirm U Marijuana (THC) Screen Drug Screen Specimen Ethyl Alcohol A/P Assessment and plan (1) Overdose: Status: Acute Qualifiers: Encounter type: initial encounter Injury intent: accidental or unintentional Qualified Code(s): T50.901A - Poisoning by unspecified drugs, medicaments and biological substances, accidental (unintentional), initial encounter (2) Pulmonary emboli: Status: Acute Qualifiers: Acute cor pulmonale presence: without acute cor pulmonale Chronicity: acute Pulmonary embolism type: unspecified Qualified Code(s): I26.99 - Other pulmonary embolism without acute cor pulmonale (3) Hypotension: Status: Acute Qualifiers: Hypotension type: unspecified hypotension type Qualified Code(s): I95.9 - Hypotension, unspecified (4) Hypoxia: Status: Acute (5) Pneumonia: Status: Acute (6) Suspected COVID-19 virus infection: Status: Acute (7) Anemia, normocytic normochromic: Status: Acute Narrative A/P Narrative: 1. Acute respiratory failure with hypoxia: DDx: Pulmonary embolism vs community acquired pneumonia vs CoVID pneumonia: Admit to inpatient med surg telemetry Isolation protocol: contact and airborne CoVID screening and confirmatory PCR tests Supplemental oxygen via nasal cannula titrate to achieve sp02>=92% Procalcitonin ESR CRP Blood culture X2 Serial lactic acid cbc w/ auto diff in the AM to trend WBC Rocephin Zithromax Eliquis 10mg PO BID X7 days, then 5mg PO BID 2. Opioid overdose: Hold Hydrocodone Narcan IV PRN opioid overdose Neurological status chest q4hr 3. h/o essential HTN: Currently soft blood pressure, likely secondary to opioid overdose Hold oral antihypertensives for the time being 4. Anemia, normocytic normochromic: cbc w/ auto diff in AM to trend H/H, transfuse pRBC if hemoglobin <7.0, active bleeding, or symptomatic GI ppx:continue oral PPI from home regimen DVT ppx: Eilquis Code status: Full Prognosis: guarded Disposition: inpatient med surg telemetry Time Spent With Patient Time: Total time spent is greater than 50% in coordination of care (as documented) at patient's floor/unit and/or counseling patient: Total time spent with greater than 50% in coordination of care (as documented) at patient's floor/unit and/or counseling patient:: 25 - 35 minutes
[2020-07-26] MEDS ORDERED: GABAPENTIN 300 MG CAPSULE PO SCH (14:48)
[2020-07-26] MEDS ORDERED: MOMETASONE IH PRN (14:48)
[2020-07-26] MEDS ORDERED: SILDENAFIL 50 MG PO PRN (14:48)
[2020-07-26] MEDS ORDERED: FORMOTEROL IH PRN (14:48)
[2020-07-26] MEDS ORDERED: [UNRECOGNIZED DRUG - OTHER] IH PRN (14:48)
[2020-07-26] MEDS ORDERED: MIRTAZAPINE 15 MG TABLET PO SCH (14:48)
[2020-07-26] MEDS ORDERED: BENZONATATE 200 MG PO SCH (15:00)
[2020-07-26] MEDS ORDERED: MOMETASONE FORMOTEROL INH PRN (15:30)
[2020-07-26] MEDS: 0.9 % SODIUM CHLORIDE 10 ML SYRINGE IV SCH ×2 (15:41→20:44)
[2020-07-26] MEDS ORDERED: MIRTAZAPINE 15 MG TABLET PO PRN (15:45)
--- NOTE | 2020-07-26 17:12 | EKG ---
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 Measurements Intervals [place] Rate: 79 P: 50 LA: 158 QRS: 33 QRSD: 98 T: 22 QT: 398 QTc: 457 Interpretive Statements Sinus rhythm NO PRIOR TRACING FOR COMPARISON NORMAL TRACING Electronically Signed On 07-26-2020 17:12:35 PDT by Vincenzo Villeda M.D. /store/M0/[id number]
[2020-07-26] MEDS: SENNOSIDES 1 TABLET PO SCH (20:42)
[2020-07-26] MEDS: BENZONATATE 100 MG CAPSULE PO SCH (20:42)
[2020-07-26] MEDS: ACYCLOVIR 400 MG TABLET PO SCH (20:43)
[2020-07-26] MEDS: ATORVASTATIN 10 MG TABLET PO SCH (20:43)
[2020-07-26] MEDS: ASPIRIN 81 MG TAB.CHEW PO SCH (20:43)
[2020-07-26] MEDS: APIXABAN 5 MG TABLET PO SCH (20:43)
[2020-07-26] MEDS: DOCUSATE SODIUM 100 MG CAPSULE PO SCH (20:44)
[2020-07-26] MEDS: GABAPENTIN 300 MG CAPSULE PO SCH (20:44)
[2020-07-27] MEDS: 0.9 % SODIUM CHLORIDE 10 ML SYRINGE IV SCH ×3 (05:27→22:07)
[2020-07-27] MEDS ORDERED: PANTOPRAZOLE 40 MG TABLET ONE (07:16)
[2020-07-27] MEDS ORDERED: PANTOPRAZOLE 40 MG TABLET PO SCH (07:30)
[2020-07-27 07:52] LABS: Basophils # (Auto) 0.02 K/mcL (0.00-0.20); Basophils % (Auto) 0.2 % (0.0-2.0); Eosinophils # (Auto) 0.18 K/mcL (0.00-0.70); Eosinophils % (Auto) 1.9 % (0.0-7.0); Hematocrit 37.7 % (41.0-55.0); Hemoglobin 12.6 g/dL (13.5-16.5); Lymphocytes # (Auto) 1.38 K/mcL (1.50-4.80); Lymphocytes % (Auto) 14.3 % (15.0-49.0); Mean Cell Volume 86.1 fL (80.0-100.0); Mean Corpuscular HGB Conc 33.4 g/dL (31.0-36.0); Mean Platelet Volume 9.5 fL (7.4-10.4); Monocytes % (Auto) 10.4 % (1.0-12.0); Neutrophils % (Auto) 73.2 % (38.0-78.0); Platelet Count 315 K/mcL (140-440); RBC 4.38 M/mcL (4.50-5.90); Red Cell Distribution Width 15.2 % (11.5-14.5); WBC 9.6 K/mcL (4.5-11.0)
[2020-07-27 08:13] LABS: ALT/SGPT 12 U/L (<40); AST/SGOT 14 U/L (<40); Albumin 3.2 gm/dL (3.2-5.2); Albumin/Globulin Ratio 1.3 (1.0-2.3); Alkaline Phosphatase 85 U/L (39-117); Bilirubin,Total 0.4 mg/dL (0.1-1.0); Blood Urea Nitrogen 10 mg/dL (8-23); Calcium 8.1 mg/dL (8.6-10.4); Carbon Dioxide 24 mmol/L (22-30); Chloride 107 mmol/L (96-108); Globulin 2.4 gm/dL (2.2-3.7); Glomerular Filtration Rate 84; Glucose 97 mg/dL (70-105)
[2020-07-27] MEDS ORDERED: CETIRIZINE 10 MG TABLET PO SCH (09:00)
[2020-07-27] MEDS ORDERED: MILK THISTLE 500 MG PO SCH (09:00)
[2020-07-27] MEDS: NALTREXONE HCL 50 MG TABLET PO SCH (09:15)
[2020-07-27] MEDS: BENZONATATE 100 MG CAPSULE PO SCH ×3 (09:16→22:03)
[2020-07-27] MEDS: CETIRIZINE 10 MG TABLET PO SCH (09:16)
[2020-07-27] MEDS: GABAPENTIN 300 MG CAPSULE PO SCH ×3 (09:16→22:01)
[2020-07-27] MEDS: APIXABAN 5 MG TABLET PO SCH ×2 (09:17→22:00)
[2020-07-27] MEDS: AZITHROMYCIN 500 MG in DEXTROSE 5% IN WATER 250 ML IV SCH (09:18)
[2020-07-27] MEDS: cefTRIAXone 1 GM VIAL IV SCH (09:18)
[2020-07-27] MEDS: DOCUSATE SODIUM 100 MG CAPSULE PO SCH ×2 (09:18→22:02)
[2020-07-27] MEDS: ACYCLOVIR 400 MG TABLET PO SCH ×2 (09:20→21:58)
[2020-07-27] MEDS: PANTOPRAZOLE 40 MG TABLET PO SCH (10:08)
[2020-07-27] MEDS: FLUTICASONE/SALMETEROL 250/50 INHALER #14 INH SCH (10:08)
--- NOTE | 2020-07-27 10:49 | Internal Med Progress Note ---
SUBJECTIVE Subjective Patient information: Note initiated : 07/27/20 at 10:43 am Service Date, if different from initiated Date: [] Patient: Krish Noyola a 75 y/o M admitted on 07/26/20 for took several pills. Chief Complaint: [lethargy and general body weakness] History of present illness: Mr. Noyola is a 75 year old M man h/o hypertensions, multiple osteoarthritis, presenting with weakness and lethargy after medication overdose. There was no prior similar episode. Patient has been taking 6 pills of hydrocodone, as well as uncountable amount of Mucinex and cough syrup for cough and back pain over the past 24 hours. Patient has also been drinking 12 packs of beers per day for the past couple of weeks with last consumptions yesterday midnight. Patient was noted by to be more lethargic and minimally responsive to voice, so EMS was called to send patients to our ED for further evaluation and treatments. Patient is currently denies any back pain or shortness of breath. He however is complaining of productive cough with right or bae sputum. He denies any fever or shaking chills. He denies any chest pain. He denies any confusions. He denies any suicidal ideation or attempts and claims that the consumptions of the drugs were solely for the purpose of pain controlled. Labs significant for leukocytosis with WBC 18. Chest x-ray unremarkable. CT angiogram showing left middle lobe peripheral pulmonary embolisms. It also suggested groundglass appearance concerning for pneumonia versus Covid pneumonia. 07/27/20: Afebrile overnight. Still on 2L supplemental oxygen. CoVID PCR negative. Blood cultures no growth to date. c/o mild SOB. Denies pain. Denies fever or chills. Constitutional Vitals: Vital Signs Temp Pulse Resp BP Pulse Ox 37.1 C 79 18 118/76 92 07/27/20 07:12 07/27/20 07:12 07/27/20 07:12 07/27/20 07:12 07/27/20 09:10 Period Temp Pulse Resp BP Sys/[place] Pulse Ox Last 24 Hr 36.7 C-37.3 C 79-101 14-79 113-157/63-76 90-98 Intake and Output 07/26/20 07/27/20 07/27/20 21:59 05:59 13:59 Intake Total 350 50 Output Total 2825 850 Balance -7265 -800 Weight 94.12 kg Intake & Output: Intake & Output 07/26/20 07/27/20 07/27/20 21:59 05:59 13:59 Intake Total 350 50 Output Total 2821 850 Balance -9605 -800 Weight 94.12 kg Intake: Oral 350 50 Output: Void Amount 2823 850 Other: Urine Appearance Clear Clear Urine Color Pale Pale Urine Odor Normal # Voids 1 General appearance: cooperative and no acute distress Head Head exam: Present atraumatic and normocephalic Eye Eye exam: Present EOMI and PERRL ENT ENT exam: Present mucous membranes moist, normal exam and normal external ear exam Additional comments: Nasal cannula in place. Neck Neck exam: Present normal inspection; Absent lymphadenopathy, tenderness and th yromegaly Respiratory Respiratory exam: Absent accessory muscle use, respiratory distress and wheezes Additional comments: Coarse breath sound in all lung sorto. Cardiovascular Cardiovascular exam: Present normal rate and rhythm; Absent JVD GI/Abdominal GI/Abdominal exam: Present normal bowel sounds and soft; Absent organomegaly and tenderness Rectal Rectal exam: Present deferred Extremities Exam Extremities exam: Present full ROM, normal capillary refill and normal inspection; Absent tenderness Neurological Exam Neurological exam: Present alert, CN II-XII intact and oriented X3; Absent motor sensory deficit Psychiatric Psychiatric exam: Present normal affect and normal mood; Absent anxious and depressed Skin Skin exam: Present dry and intact OBJ DATA Labs CBC & Chem 7: 07/27/20 05:21 07/27/20 05:21 Labs: Abnormal Lab Results 07/27/20 07/27/20 07/26/20 05:21 05:21 07:26 WBC RBC 4.38 L Hgb 12.6 L Hct 37.7 L RDW 15.2 H Neut % (Auto) Lymph % (Auto) 14.3 L Lymph # (Auto) 1.38 L [place] # (Auto) 1.00 H Absolute Neutrophils Sodium Potassium 3.2 L Chloride Carbon Dioxide Anion Gap Calcium 8.1 L Total Protein 5.6 L Ethyl Alcohol 0.055 H 07/26/20 07/26/20 07:20 07:20 WBC 18.1 H RBC 4.42 L Hgb 12.6 L Hct 37.9 L RDW 14.9 H Neut % (Auto) 80.6 H Lymph % (Auto) 11.5 L Lymph # (Auto) [place] # (Auto) 1.29 H Absolute Neutrophils 14.55 H Sodium 127 L Potassium 3.0 L Chloride 94 L Carbon Dioxide 14 L Anion Gap 19.0 H Calcium 7.3 L Total Protein Ethyl Alcohol Meds: Medications Acyclovir (Acyclovir 400 Mg Tablet) 200 mg PO BID [facility]; Protocol Last Admin: 07/27/20 09:20 Dose: 200 mg Documented by: Albuterol/Ipratropium (Ipratropium/Albuterol 3 Ml Ampul.Neb) 3 ml NEB Q4HRT PRN PRN Reason: Wheezing Apixaban (Apixaban 5 Mg Tablet) 10 mg PO BID [facility] Stop: 08/02/20 09:01 Last Admin: 07/27/20 09:17 Dose: 10 mg Documented by: Aspirin (Aspirin 81 Mg Tab.Chew) 81 mg PO [facility] Last Admin: 07/26/20 20:43 Dose: 81 mg Documented by: Atorvastatin Calcium (Atorvastatin 10 Mg Tablet) 5 mg PO [facility] Last Admin: 07/26/20 20:43 Dose: 5 mg Documented by: Benzonatate (Benzonatate 100 Mg Capsule) 200 mg PO TID [facility] Last Admin: 07/27/20 09:16 Dose: 200 mg Documented by: Ceftriaxone Sodium (Ceftriaxone 1 Gm Vial) 1 gm IV DAILY [facility] Last Admin: 07/27/20 09:18 Dose: 1 gm Documented by: Cetirizine HCl (Cetirizine 10 Mg Tablet) 10 mg PO DAILY [facility] Last Admin: 07/27/20 09:16 Dose: 10 mg Documented by: Docusate Sodium (Docusate Sodium 100 Mg Capsule) 100 mg PO BID [facility] Last Admin: 07/27/20 09:18 Dose: 100 mg Documented by: Gabapentin (Gabapentin 300 Mg Capsule) 300 mg PO TID [facility] Last Admin: 07/27/20 09:16 Dose: 300 mg Documented by: Azithromycin 500 mg/ Dextrose 250 mls @ 250 mls/hr IV DAILY [facility]; Protocol Stop: 07/28/20 09:59 Last Admin: 07/27/20 09:18 Dose: 250 mls/hr Documented by: Mirtazapine (Mirtazapine 15 Mg Tablet) 7.5 - 15 mg PO HSP PRN PRN Reason: Insomnia Naloxone HCl (Naloxone Hcl 0.4 Mg/Ml Vial) 0.1 mg IV Q2MIN PRN PRN Reason: Opiate Reversal Naltrexone HCl (Naltrexone Hcl 50 Mg Tablet) 50 mg PO QDAY [facility] Last Admin: 07/27/20 09:15 Dose: 50 mg Documented by: Ondansetron HCl (Ondansetron 4 Mg/2 Ml Vial) 4 mg IV Q6HP PRN PRN Reason: Nausea And Vomiting Pantoprazole Sodium (Pantoprazole 40 Mg Tablet) 40 mg PO QAMAC [facility] Last Admin: 07/27/20 10:08 Dose: Not Given Documented by: Mometasone- Formoterol 200 Mcg-5 Mcg Aerosol Inhaler 1 dose INH BIDP PRN PRN Reason: Cough Potassium Chloride (Potassium Chloride 20 Meq Tablet) 40 meq PO BIDCC [facility] Fluticasone/Salmeterol (Fluticasone/Salmeterol 250/50 Inhaler #14) 1 puff INH DAILY [facility] Last Admin: 07/27/20 10:08 Dose: Not Given Documented by: Senna (Sennosides 1 Tablet) 2 tab PO HS [facility] Last Admin: 07/26/20 20:42 Dose: 2 tab Documented by: Sodium Chloride (0.9 % Sodium Chloride 10 Ml Syringe) 10 ml IV Q8 [facility] Last Admin: 07/27/20 05:27 Dose: 10 ml Documented by: A/P Assessment and plan (1) Anemia, normocytic normochromic: Status: Acute (2) Pneumonia: Status: Acute (3) Hypoxia: Status: Acute (4) Overdose: Status: Acute Qualifiers: Encounter type: initial encounter Injury intent: accidental or unintentional Qualified Code(s): T50.901A - Poisoning by unspecified drugs, medicaments and biological substances, accidental (unintentional), initial encounter (5) Pulmonary emboli: Status: Acute Qualifiers: Acute cor pulmonale presence: without acute cor pulmonale Chronicity: acute Pulmonary embolism type: unspecified Qualified Code(s): I26.99 - Other pulmonary embolism without acute cor pulmonale (6) Hypokalemia: Status: Acute Narrative A/P Narrative: 1. Acute respiratory failure with hypoxia: Secondary to Pulmonary embolism and community acquired pneumonia Stays in inpatient med surg telemetry Remove Isolation protocol CoVID PCR negative Supplemental oxygen via nasal cannula titrate to achieve sp02>=92% Procalcitonin ESR CRP Blood culture X2, no growth to date Serial lactic acid cbc w/ auto diff in the AM to trend WBC Rocephin Zithromax Eliquis 10mg PO BID X7 days, then 5mg PO BID 2. Opioid overdose: Hold Hydrocodone Narcan IV PRN opioid overdose Neurological status chest q4hr 3. h/o essential HTN: Currently soft blood pressure, likely secondary to opioid overdose Hold oral antihypertensives for the time being 4. Anemia, normocytic normochromic: cbc w/ auto diff in AM to trend H/H, transfuse pRBC if hemoglobin <7.0, active bleeding, or symptomatic 5. Hypokalemia: Potassium oral replacement Check CMP and serum Mg level, also replace Mg if needed GI ppx:continue oral PPI from home regimen DVT ppx: Eilquis Code status: Full Prognosis: guarded Disposition: inpatient med surg telemetry Time Spent With Patient Time: Total time spent is greater than 50% in coordination of care (as documented) at patient's floor/unit and/or counseling patient: QUALITY Stroke Symptom Onset Unknown: No VTE Deep Vein Thrombosis/Pulmonary Embolism Present on Admission: No
[2020-07-27] MEDS: POTASSIUM CHLORIDE 20 MEQ TABLET PO SCH (17:36)
[2020-07-27] MEDS: ASPIRIN 81 MG TAB.CHEW PO SCH (22:00)
[2020-07-27] MEDS: ATORVASTATIN 10 MG TABLET PO SCH (22:01)
[2020-07-27] MEDS: SENNOSIDES 1 TABLET PO SCH (22:03)
[2020-07-28] MEDS: PANTOPRAZOLE 40 MG TABLET PO SCH (07:04)
[2020-07-28] MEDS: POTASSIUM CHLORIDE 20 MEQ TABLET PO SCH ×2 (07:04→17:42)
[2020-07-28] MEDS: 0.9 % SODIUM CHLORIDE 10 ML SYRINGE IV SCH ×3 (07:05→20:42)
[2020-07-28] MEDS: FLUTICASONE/SALMETEROL 250/50 INHALER #14 INH SCH (09:10)
[2020-07-28] MEDS: BENZONATATE 100 MG CAPSULE PO SCH ×3 (09:11→20:38)
[2020-07-28] MEDS: NALTREXONE HCL 50 MG TABLET PO SCH (09:12)
[2020-07-28] MEDS: ACYCLOVIR 400 MG TABLET PO SCH ×2 (09:12→20:38)
[2020-07-28] MEDS: APIXABAN 5 MG TABLET PO SCH ×2 (09:12→20:40)
[2020-07-28] MEDS: DOCUSATE SODIUM 100 MG CAPSULE PO SCH ×2 (09:12→20:40)
[2020-07-28] MEDS: AZITHROMYCIN 500 MG in DEXTROSE 5% IN WATER 250 ML IV SCH (09:13)
[2020-07-28] MEDS: GABAPENTIN 300 MG CAPSULE PO SCH ×3 (09:13→20:39)
[2020-07-28] MEDS: CETIRIZINE 10 MG TABLET PO SCH (09:13)
[2020-07-28] MEDS: cefTRIAXone 1 GM VIAL IV SCH (09:13)
[2020-07-28 09:59] LABS: Basophils # (Auto) 0.04 K/mcL (0.00-0.20); Basophils % (Auto) 0.5 % (0.0-2.0); Eosinophils # (Auto) 0.45 K/mcL (0.00-0.70); Eosinophils % (Auto) 5.3 % (0.0-7.0); Hematocrit 37.8 % (41.0-55.0); Hemoglobin 12.3 g/dL (13.5-16.5); Lymphocytes # (Auto) 1.76 K/mcL (1.50-4.80); Lymphocytes % (Auto) 20.5 % (15.0-49.0); Mean Cell Volume 86.5 fL (80.0-100.0); Mean Corpuscular HGB Conc 32.5 g/dL (31.0-36.0); Mean Platelet Volume 9.7 fL (7.4-10.4); Monocytes # (Auto) 1.03 K/mcL (0.10-0.90); Neutrophils % (Auto) 61.7 % (38.0-78.0); Platelet Count 321 K/mcL (140-440); RBC 4.37 M/mcL (4.50-5.90); Red Cell Distribution Width 15.4 % (11.5-14.5); WBC 8.6 K/mcL (4.5-11.0)
[2020-07-28 10:09] LABS: ALT/SGPT 11 U/L (<40); AST/SGOT 15 U/L (<40); Albumin 3.4 gm/dL (3.2-5.2); Albumin/Globulin Ratio 1.5 (1.0-2.3); Alkaline Phosphatase 88 U/L (39-117); Bilirubin,Total 0.5 mg/dL (0.1-1.0); Blood Urea Nitrogen 9 mg/dL (8-23); Calcium 8.4 mg/dL (8.6-10.4); Carbon Dioxide 23 mmol/L (22-30); Chloride 106 mmol/L (96-108); Globulin 2.3 gm/dL (2.2-3.7); Glomerular Filtration Rate 88; Glucose 92 mg/dL (70-105)
[2020-07-28] MEDS ORDERED: [UNRECOGNIZED DRUG - OTHER] INHALATION PRN (10:24)
[2020-07-28] MEDS ORDERED: [UNRECOGNIZED DRUG - OTHER] PO PRN (10:24)
[2020-07-28] MEDS ORDERED: IBUPROFEN 200 MG TABLET PO PRN (10:28)
--- NOTE | 2020-07-28 16:05 | Internal Med Progress Note ---
SUBJECTIVE Subjective Patient information: Note initiated : 07/28/20 at 3:59 pm Service Date, if different from initiated Date: [] Patient: Krish Noyola a 75 y/o M admitted on 07/26/20 for took several pills. Chief Complaint: [shortness of breath] History of present illness: Mr. Noyola is a 75 year old M man h/o hypertensions, multiple osteoarthritis, presenting with weakness and lethargy a fter medication overdose. There was no prior similar episode. Patient has been taking 6 pills of hydrocodone, as well as uncountable amount of Mucinex and cough syrup for cough and back pain over the past 24 hours. Patient has also been drinking 12 packs of beers per day for the past couple of weeks with last consumptions yesterday midnight. Patient was noted by to be more lethargic and minimally responsive to voice, so EMS was called to send patients to our ED for further evaluation and treatments. Patient is currently denies any back pain or shortness of breath. He however is complaining of productive cough with right or bae sputum. He denies any fever or shaking chills. He denies any chest pain. He denies any confusions. He denies any suicidal ideation or attempts and claims that the consumptions of the drugs were solely for the purpose of pain controlled. Labs significant for leukocytosis with WBC 18. Chest x-ray unremarkable. CT angiogram showing left middle lobe peripheral pulmonary embolisms. It also suggested groundglass appearance concerning for pneumonia versus Covid pneumonia. 07/27/20: Afebrile overnight. Still on 2L supplemental oxygen. CoVID PCR ne gative. Blood cultures no growth to date. c/o mild SOB. Denies pain. Denies fever or chills. 07/28: Afebrile overnight. Still on 2L supplemental oxygen. Blood cultures no growth to date. c/o nonproductive cough and respiratory wheezing. Denies shortness of breath or chest pain. Denies fever, chills, or sweating. Constitutional Vitals: Vital Signs Temp Pulse Resp BP Pulse Ox 36.9 C 85 20 125/75 97 07/28/20 12:00 07/28/20 12:00 07/28/20 12:00 07/28/20 12:00 07/28/20 12:00 Period Temp Pulse Resp BP Sys/[place] Pulse Ox Last 24 Hr 36.7 C-37.3 C 79-89 20-20 124-144/73-85 93-97 Intake and Output 07/28/20 07/28/20 07/28/20 05:59 13:59 21:59 Intake Total 680 250 Output Total 450 Balance 230 250 Weight 91.852 kg Patient Weight 07/29/20 05:59 Weight 91.852 kg Intake & Output: Intake & Output 07/28/20 07/28/20 07/28/20 05:59 13:59 21:59 Intake Total 680 250 Output Total 450 Balance 230 250 Weight 91.852 kg Intake: IV 250 Zithromax 500 mg In Dextrose 5% 250 in Water 250 ml @ 250 mls/hr IV DAILY [facility] Rx#:[id number] Oral 680 Output: Void Amount 450 General appearance: cooperative and no acute distress Head Head exam: Present atraumatic and normocephalic Eye Eye exam: Present EOMI and PERRL ENT ENT exam: Present mucous membranes moist, normal exam and normal external ear exam Additional comments: Nasal cannula in place. Neck Neck exam: Present normal inspection; Absent lymphadenopathy, tenderness and thyromegaly Respiratory Respiratory exam: Absent accessory muscle use, respiratory distress and wheezes Cardiovascular Cardiovascular exam: Present normal rate and rhythm; Absent JVD GI/Abdominal GI/Abdominal exam: Present normal bowel sounds and soft; Absent organomegaly and tenderness Rectal Rectal exam: Present deferred Extremities Exam Extremities exam: Present full ROM, normal capillary refill and normal inspection; Absent tenderness Neurological Exam Neurological exam: Present alert, CN II-XII intact and oriented X3; Absent motor sensory deficit Psychiatric Psychiatric exam: Present normal affect and normal mood; Absent anxious and depressed Skin Skin exam: Present dry and intact OBJ DATA Labs CBC & Chem 7: 07/28/20 05:30 07/28/20 05:30 Labs: Abnormal Lab Results 07/28/20 07/28/20 07/27/20 05:30 05:30 05:21 WBC RBC 4.37 L Hgb 12.3 L Hct 37.8 L RDW 15.4 H Neut % (Auto) Lymph % (Auto) Lymph # (Auto) [place] # (Auto) 1.03 H Absolute Neutrophils Sodium Potassium 3.2 L Chloride Carbon Dioxide Anion Gap Calcium 8.4 L 8.1 L Total Protein 5.7 L 5.6 L Ethyl Alcohol 07/27/20 07/26/20 07/26/20 05:21 07:26 07:20 WBC RBC 4.38 L Hgb 12.6 L Hct 37.7 L RDW 15.2 H Neut % (Auto) Lymph % (Auto) 14.3 L Lymph # (Auto) 1.38 L [place] # (Auto) 1.00 H Absolute Neutrophils Sodium 127 L Potassium 3.0 L Chloride 94 L Carbon Dioxide 14 L Anion Gap 19.0 H Calcium 7.3 L Total Protein Ethyl Alcohol 0.055 H 07/26/20 07:20 WBC 18.1 H RBC 4.42 L Hgb 12.6 L Hct 37.9 L RDW 14.9 H Neut % (Auto) 80.6 H Lymph % (Auto) 11.5 L Lymph # (Auto) [place] # (Auto) 1.29 H Absolute Neutrophils 14.55 H Sodium Potassium Chloride Carbon Dioxide Anion Gap Calcium Total Protein Ethyl Alcohol Meds: Medications Acyclovir (Acyclovir 400 Mg Tablet) 200 mg PO BID [facility]; Protocol Last Admin: 07/28/20 09:12 Dose: 200 mg Documented by: Albuterol/Ipratropium (Ipratropium/Albuterol 3 Ml Ampul.Neb) 3 ml NEB Q4HRT PRN PRN Reason: Wheezing Apixaban (Apixaban 5 Mg Tablet) 10 mg PO BID [facility] Stop: 08/02/20 09:01 Last Admin: 07/28/20 09:12 Dose: 10 mg Documented by: Aspirin (Aspirin 81 Mg Tab.Chew) 81 mg PO [facility] Last Admin: 07/27/20 22:00 Dose: 81 mg Documented by: Atorvastatin Calcium (Atorvastatin 10 Mg Tablet) 5 mg PO [facility] Last Admin: 07/27/20 22:01 Dose: 5 mg Documented by: Benzonatate (Benzonatate 100 Mg Capsule) 200 mg PO TID [facility] Last Admin: 07/28/20 15:10 Dose: 200 mg Documented by: Ceftriaxone Sodium (Ceftriaxone 1 Gm Vial) 1 gm IV DAILY [facility] Last Admin: 07/28/20 09:13 Dose: 1 gm Documented by: Cetirizine HCl (Cetirizine 10 Mg Tablet) 10 mg PO DAILY [facility] Last Admin: 07/28/20 09:13 Dose: 10 mg Documented by: Docusate Sodium (Docusate Sodium 100 Mg Capsule) 100 mg PO BID [facility] Last Admin: 07/28/20 09:12 Dose: 100 mg Documented by: Fluticasone Propionate (Fluticasone Propionate [place].Jacob) 1 spray NS QAM [facility] Gabapentin (Gabapentin 300 Mg Capsule) 300 mg PO TID [facility] Last Admin: 07/28/20 15:09 Dose: 300 mg Documented by: Ibuprofen (Ibuprofen 200 Mg Tablet) 200 mg PO Q6HP PRN PRN Reason: Pain Mirtazapine (Mirtazapine 15 Mg Tablet) 7.5 - 15 mg PO HSP PRN PRN Reason: Insomnia Naloxone HCl (Naloxone Hcl 0.4 Mg/Ml Vial) 0.1 mg IV Q2MIN PRN PRN Reason: Opiate Reversal Naltrexone HCl (Naltrexone Hcl 50 Mg Tablet) 50 mg PO QDAY [facility] Last Admin: 07/28/20 09:12 Dose: 50 mg Documented by: Niacin (Niacin 250 Mg Cap.Sr.12h) 500 mg PO QDAY [facility] Ondansetron HCl (Ondansetron 4 Mg/2 Ml Vial) 4 mg IV Q6HP PRN PRN Reason: Nausea And Vomiting Pantoprazole Sodium (Pantoprazole 40 Mg Tablet) 40 mg PO QAMAC [facility] Last Admin: 07/28/20 07:04 Dose: 40 mg Documented by: Mometasone- Formoterol 200 Mcg-5 Mcg Aerosol Inhaler 1 dose INH BIDP PRN PRN Reason: Cough Coenzyme Q10 200 Mg (Capsule) 1 dose PO QDAY [facility] Fluticasone Furoate- Vilanterol [Breo Ellipta] 200/25 Mcg Inhaler [facility] Potassium Chloride (Potassium Chloride 20 Meq Tablet) 40 meq PO BIDCC [facility] Last Admin: 07/28/20 07:04 Dose: 40 meq Documented by: Fluticasone/Salmeterol (Fluticasone/Salmeterol 250/50 Inhaler #14) 1 puff INH DAILY [facility] Last Admin: 07/28/20 09:10 Dose: Not Given Documented by: Senna (Sennosides 1 Tablet) 2 tab PO HS [facility] Last Admin: 07/27/20 22:03 Dose: Not Given Documented by: Sodium Chloride (0.9 % Sodium Chloride 10 Ml Syringe) 10 ml IV Q8 [facility] Last Admin: 07/28/20 15:09 Dose: 10 ml Documented by: A/P Assessment and plan (1) Anemia, normocytic normochromic: Status: Acute (2) Pneumonia: Status: Acute (3) Hypoxia: Status: Acute (4) Overdose: Status: Acute Qualifiers: Encounter type: initial encounter Injury intent: accidental or unin tentional Qualified Code(s): T50.901A - Poisoning by unspecified drugs, me dicaments and biological substances, accidental (unintentional), initial encounter (5) Pulmonary emboli: Status: Acute Qualifiers: Acute cor pulmonale presence: without acute cor pulmonale Chronicity: acute Pulmonary embolism type: unspecified Qualified Code(s): I26.99 - Other pulmonary embolism without acute cor pulmonale (6) Hypokalemia: Status: Acute Narrative A/P Narrative: 1. Acute respiratory failure with hypoxia: Secondary to Pulmonary embolism and community acquired pneumonia Stays in inpatient med surg; okay to d/c cardiac monitoring CoVID PCR negative, remove Isolation protocol Supplemental oxygen via nasal cannula titrate to achieve sp02>=92% Procalcitonin ESR CRP Blood culture X2, no growth to date Serial lactic acid cbc w/ auto diff in the AM to trend WBC Rocephin Zithromax Eliquis 10mg PO BID X7 days, then 5mg PO BID 2. Opioid overdose: Hold Hydrocodone Narcan IV PRN opioid overdose Neurological status chest q4hr 3. h/o essential HTN: Currently soft blood pressure, likely secondary to opioid overdose Hold oral antihypertensives for the time being 4. Anemia, normocytic normochromic: cbc w/ auto diff in AM to trend H/H, transfuse pRBC if hemoglobin <7.0, active bleeding, or symptomatic 5. Hypokalemia: Potassium oral replacement Check CMP and serum Mg level, also replace Mg if needed GI ppx:continue oral PPI from home regimen DVT ppx: Eilquis Code status: Full Prognosis: guarded Disposition: inpatient med surg telemetry Time Spent With Patient Time: Total time spent is greater than 50% in coordination of care (as documented) at patient's floor/unit and/or counseling patient: QUALITY Stroke Symptom Onset Unknown: No VTE Deep Vein Thrombosis/Pulmonary Embolism Present on Admission: No
[2020-07-28] MEDS: ATORVASTATIN 10 MG TABLET PO SCH (20:39)
[2020-07-28] MEDS: SENNOSIDES 1 TABLET PO SCH (20:40)
[2020-07-28] MEDS: ASPIRIN 81 MG TAB.CHEW PO SCH (20:40)
[2020-07-29] MEDS: 0.9 % SODIUM CHLORIDE 10 ML SYRINGE IV SCH ×2 (06:05→13:55)
[2020-07-29 07:01] LABS: Basophils # (Auto) 0.05 K/mcL (0.00-0.20); Basophils % (Auto) 0.6 % (0.0-2.0); Eosinophils # (Auto) 0.52 K/mcL (0.00-0.70); Eosinophils % (Auto) 6.6 % (0.0-7.0); Hematocrit 37.1 % (41.0-55.0); Hemoglobin 12.5 g/dL (13.5-16.5); Lymphocytes # (Auto) 2.41 K/mcL (1.50-4.80); Lymphocytes % (Auto) 30.5 % (15.0-49.0); Mean Cell Volume 85.9 fL (80.0-100.0); Mean Corpuscular HGB Conc 33.7 g/dL (31.0-36.0); Mean Platelet Volume 9.5 fL (7.4-10.4); Monocytes % (Auto) 11.4 % (1.0-12.0); Neutrophils % (Auto) 50.9 % (38.0-78.0); Platelet Count 317 K/mcL (140-440); RBC 4.32 M/mcL (4.50-5.90); Red Cell Distribution Width 15.2 % (11.5-14.5); WBC 7.9 K/mcL (4.5-11.0)
[2020-07-29] MEDS: PANTOPRAZOLE 40 MG TABLET PO SCH (07:38)
[2020-07-29] MEDS: POTASSIUM CHLORIDE 20 MEQ TABLET PO SCH (07:38)
[2020-07-29 08:00] LABS: ALT/SGPT 11 U/L (<40); AST/SGOT 13 U/L (<40); Albumin 3.3 gm/dL (3.2-5.2); Albumin/Globulin Ratio 1.3 (1.0-2.3); Alkaline Phosphatase 83 U/L (39-117); Bilirubin,Total 0.3 mg/dL (0.1-1.0); Blood Urea Nitrogen 10 mg/dL (8-23); Calcium 8.5 mg/dL (8.6-10.4); Carbon Dioxide 25 mmol/L (22-30); Chloride 108 mmol/L (96-108); Globulin 2.5 gm/dL (2.2-3.7); Glomerular Filtration Rate 88; Glucose 94 mg/dL (70-105)
[2020-07-29] MEDS: DOCUSATE SODIUM 100 MG CAPSULE PO SCH (08:59)
[2020-07-29] MEDS ORDERED: FLUTICASONE PROPIONATE SPRAY.NAS NS SCH (09:00)
[2020-07-29] MEDS: ACYCLOVIR 400 MG TABLET PO SCH (09:00)
[2020-07-29] MEDS ORDERED: NIACIN 250 MG CAP.SR.12H PO SCH (09:00)
[2020-07-29] MEDS ORDERED: SELENIUM 200 MCG PO SCH (09:00)
[2020-07-29] MEDS ORDERED: Fluticasone Furoate-Vilanterol [Breo Ellipta] 200/25 mcg Inhaler INH SCH (09:00)
[2020-07-29] MEDS ORDERED: COENZYME Q10 200 MG PO SCH (09:00)
[2020-07-29] MEDS: BENZONATATE 100 MG CAPSULE PO SCH (09:01)
[2020-07-29] MEDS: CETIRIZINE 10 MG TABLET PO SCH (09:02)
[2020-07-29] MEDS: APIXABAN 5 MG TABLET PO SCH (09:02)
[2020-07-29] MEDS: cefTRIAXone 1 GM VIAL IV SCH (09:03)
[2020-07-29] MEDS: GABAPENTIN 300 MG CAPSULE PO SCH (09:03)
[2020-07-29] MEDS: NALTREXONE HCL 50 MG TABLET PO SCH (09:11)
[2020-07-29] MEDS: FLUTICASONE/SALMETEROL 250/50 INHALER #14 INH SCH (09:15)
--- NOTE | 2020-07-29 12:30 | Discharge Summary ---
Discharge Provider Provider Patient information: Note initiated : 07/29/20 at 12:26 pm Service Date, if different from initiated Date: [] Patient: Krish Noyola 75 y/o M admitted on 07/26/20 for took several pills. Chief Complaint: [] Date of admission: 07/26/20 14:40 Discharge date: 07/29/20 Primary care physician: Blanca James Consults: 07/26/20 Consult to Physician [CONS] Stat Comment: Consulting Provider: Larry Syed Reason For Exam: Physician to Consult Consult to Physician [CONS] Stat Comment: Consulting Provider: Juno Grissom Reason For Exam: Physician to Consult Discharge Meds Discharge Medications Home Medications amlodipine 10 mg PO HS 08/27/14 [History Confirmed 07/26/20 Last Taken 07/25/20] aspirin 81 mg PO HS 08/27/14 [History Confirmed 07/26/20 Last Taken 07/25/20] cetirizine 10 mg PO DAILY 08/27/14 [History Confirmed 07/26/20 Last Taken 07/25/20] hydrochlorothiazide 25 mg PO DAILY 08/27/14 [History Confirmed 07/26/20 Last Taken 07/25/20] losartan 100 mg PO DAILY 08/27/14 [History Confirmed 07/26/20 Last Taken 07/25/20] milk thistle 1,000 mg PO DAILY 08/27/14 [History Confirmed 07/26/20 Last Taken 03/04/15] mometasone-formoterol 2 puff IH BIDP PRN 08/27/14 [History Confirmed 07/26/20 Last Taken 07/25/20] pantoprazole 40 mg PO QAMAC 08/27/14 [History Confirmed 07/26/20 Last Taken 07/25/20] fluticasone propion-salmeterol 1 puff INH DAILY 12/03/14 [History Confirmed 07/26/20 Last Taken 07/25/20] sildenafil 50 mg PO PRN PRN 12/03/14 [History Confirmed 07/26/20 Last Taken 07/25/20] acyclovir 400 mg tablet 200 mg PO BID tab 01/20/17 [History Confirmed 07/26/20 Last Taken 07/25/20] lovastatin 10 mg tablet 20 mg PO HS tab 01/20/17 [History Confirmed 07/26/20 Last Taken 07/25/20] mirtazapine 15 mg tablet See Rx Instructions .ROUTE .COMPLEX #30 tablet 12/31/19 [Rx Confirmed 07/26/20 Last Taken 07/26/20] gabapentin 300 mg capsule See Rx Instructions .ROUTE .COMPLEX #90 capsule 07/07/20 [Rx Confirmed 07/26/20 Last Taken Unknown] naltrexone 50 mg tablet 50 mg PO QDAY #30 tab 07/07/20 [Rx Confirmed 07/26/20 Last Taken Unknown] Dulera 1 puff INHALATION PRN PRN 07/26/20 [History Confirmed 07/26/20 Last Taken Unknown] benzonatate 200 mg PO TID 07/26/20 [History Confirmed 07/26/20 Last Taken Unknown] coenzyme Q10 [Q-Sorb Co Q-10] 200 mg PO QDAY 07/26/20 [History Confirmed 07/26/20 Last Taken Unknown] vtbtkeuec-WMZ-GV-acetaminophen 30 ml PO ONCE PRN 07/26/20 [History Confirmed 07/26/20 Last Taken Unknown] hydrocodone-acetaminophen 5 - 325 tab PO Q4-6HP PRN 07/26/20 [History Confirmed 07/26/20 Last Taken Unknown] ibuprofen 200 mg PO Q6H PRN 07/26/20 [History Confirmed 07/26/20 Last Taken Unknown] niacin (inositol niacinate) 1 cap PO QDAY 07/26/20 [History Confirmed 07/26/20 Last Taken Unknown] potassium 99 mg PO DAILY 07/26/20 [History Confirmed 07/26/20 Last Taken Unknown] selenium 200 mcg PO QDAY 07/26/20 [History Confirmed 07/26/20 Last Taken Unknown] Allergy Relief (fluticasone) 50 mcg INHALATION QAM 07/28/20 [History Confirmed 07/28/20 Last Taken Unknown] Breo Ellipta 1 inh INHALATION QAM 07/28/20 [History Confirmed 07/28/20 Last Taken Unknown] amoxicillin-pot clavulanate [Augmentin] 1 tab PO BID #10 tab 07/29/20 [Rx Last Taken Unknown] apixaban [Eliquis] 10 mg PO BID #30 tab 07/29/20 [Rx Last Taken Unknown] COURSE Hospital Course Hospital course: Patient was admitted on 07/26/20 for community acquired pneumonia as well as pulmonary embolism. For community acquired pneumonia, after blood cultures were collected, he was started on Rocephin and Zithromax. Supplemental oxygen was also provided. Pulmonary embolism was being diagnosed with CT angiogram of the chest. Eliquis was started. By 07/29/20, patient tolerated room air, been afebrile for more than 24 hours, and otherwise reached clinical stability. As such, the decision was made to discharge him home with Rx Augmentin and Eliquis sent to pharmacy. 2 week PCP follow up appointment made for him. All questions were answered prior to patient being physically discharged. Discharge diagnosis: community acquired pneumonia; pulmonary embolism Time Spent with Patient Time attestation: Total time spent providing and/or coordinating discharge services: Patient was admitted on 07/26/20 for community acquired pneumonia as well as pulmonary embolism. For community acquired pneumonia, after blood cultures were collected, he was started on Rocephin and Zithromax. Supplemental oxygen was also provided. Pulmonary embolism was being diagnosed with CT angiogram of the chest. Eliquis was started. By 07/29/20, patient tolerated room air, been afebrile for more than 24 hours, and otherwise reached clinical stability. As such, the decision was made to discharge him home with Rx Augmentin and Eliquis sent to pharmacy. 2 week PCP follow up appointment made for him. All questions were answered prior to patient being physically discharged. EXAM Constitutional Vitals: Temp Pulse Resp BP Pulse Ox 37.2 C 70 18 132/84 91 07/29/20 11:59 07/29/20 11:59 07/29/20 11:59 07/29/20 11:59 07/29/20 11:59 General appearance: cooperative and no acute distress Head Head exam: Present atraumatic and normocephalic Eye Eye exam: Present EOMI and PERRL ENT ENT exam: Present mucous membranes moist, normal exam and normal external ear exam Neck Neck exam: Present normal inspection; Absent lymphadenopathy, tenderness and thyromegaly Respiratory Respiratory exam: Absent accessory muscle use, respiratory distress and wheezes Cardiovascular Cardiovascular exam: Present normal rate and rhythm; Absent JVD GI/Abdominal GI/Abdominal exam: Present normal bowel sounds and soft; Absent organomegaly and tenderness Rectal Rectal exam: Present deferred Extremities Exam Extremities exam: Present full ROM, normal capillary refill and normal inspection; Absent tenderness Neurological Exam Neurological exam: Present alert, CN II-XII intact and oriented X3; Absent motor sensory deficit Psychiatric Psychiatric exam: Present normal affect and normal mood; Absent anxious and depressed Skin Skin exam: Present dry and intact Discharge Data Data Completed and Pending Labs on day of discharge: Labs from last 24 hours 07/29/20 07/29/20 06:05 06:05 WBC 7.9 RBC 4.32 L Hgb 12.5 L Hct 37.1 L MCV 85.9 MCH 28.9 MCHC 33.7 RDW 15.2 H Plt Count 317 MPV 9.5 Neut % (Auto) 50.9 Lymph % (Auto) 30.5 [place] % (Auto) 11.4 Eos % (Auto) 6.6 Baso % (Auto) 0.6 Lymph # (Auto) 2.41 [place] # (Auto) 0.90 Eos # (Auto) 0.52 Baso # (Auto) 0.05 Absolute Neutrophils 4.02 Sodium 138 Potassium 4.0 Chloride 108 Carbon Dioxide 25 Anion Gap 5.0 L BUN 10 Creatinine 0.8 GFR Calculation 88 Glucose 94 Calcium 8.5 L Total Bilirubin 0.3 AST 13 ALT 11 Alkaline Phosphatase 83 Total Protein 5.8 L Albumin 3.3 Globulin 2.5 Albumin/Globulin Ratio 1.3 Preliminary micro results at discharge 07/26/20 10:55 Blood Culture - Preliminary Blood 07/26/20 10:40 Blood Culture - Preliminary Blood Discharge Plan Patient/Caregiver Discharge Instructions Activity: increase activity as tolerated Diet: Regular Diet Activity Restrictions/Additional Instructions: Back to normal physical routine on 08/03/20 Prescriptions: New Eliquis 5 mg Tablet 10 mg PO BID Qty: 30 RF: 0 amoxicillin-pot clavulanate [Augmentin] 875-125 mg tablet 1 tab PO BID Qty: 10 RF: 0 Continued mirtazapine 15 mg tablet See Rx Instructions .ROUTE .COMPLEX Qty: 30 RF: 2 naltrexone 50 mg tablet 50 mg PO QDAY Qty: 30 RF: 2 gabapentin 300 mg capsule See Rx Instructions .ROUTE .COMPLEX Qty: 90 RF: 2 acyclovir 400 mg tablet 200 mg PO BID RF: 0 cetirizine 10 MG tablet 10 mg PO DAILY RF: 0 milk thistle 500 MG capsule 1,000 mg PO DAILY RF: 0 aspirin 81 MG tablet,delayed release (DR/EC) 81 mg PO HS RF: 0 amlodipine 10 MG tablet 10 mg PO HS RF: 0 pantoprazole 40 MG tablet 40 mg PO QAMAC RF: 0 hydrochlorothiazide 25 MG tablet 25 mg PO DAILY RF: 0 losartan 100 MG tablet 100 mg PO DAILY RF: 0 mometasone-formoterol 13 GM HFA aerosol inhaler 2 puff IH BIDP PRN (Reason: Cough) RF: 0 lovastatin 10 MG tablet 20 mg PO HS RF: 0 fluticasone propion-salmeterol 1 PUFF inhaler 1 puff INH DAILY RF: 0 sildenafil 50 MG tablet 50 mg PO PRN PRN (Reason: Erectile Dysfunction) RF: 0 benzonatate 200 mg capsule 200 mg PO TID RF: 0 hydrocodone-acetaminophen 10-325 mg tablet 5 - 325 tab PO Q4-6HP PRN (Reason: Pain) RF: 0 potassium 99 mg Tablet 99 mg PO DAILY RF: 0 coenzyme Q10 [Q-Sorb Co Q-10] 200 mg Capsule 200 mg PO QDAY RF: 0 niacin (inositol niacinate) 500 mg Capsule 1 cap PO QDAY RF: 0 selenium 200 mcg Tablet 200 mcg PO QDAY RF: 0 ibuprofen 200 mg Tablet 200 mg PO Q6H PRN (Reason: Pain) RF: 0 Dulera 200-5 mcg/actuation Hfa Aerosol Inhaler 1 puff INHALATION PRN PRN (Reason: asthma) RF: 0 azwzwihpi-HXP-UC-acetaminophen 7.5-60-30-1,000 mg/30 mL Liquid 30 ml PO ONCE PRN (Reason: Cold Symptoms) RF: 0 Allergy Relief (fluticasone) 50 mcg inhalation QAM RF: 0 Breo Ellipta 200-25 mcg/dose Blister With Device 1 inh INHALATION QAM RF: 0 Follow Up Plan Follow up with: Blanca James MD [Primary Care Provider] - Patient Disposition: Home, Self-Care Prognosis: Fair Rehab Potential: Undetermined Overall status at discharge: patient is progressing back to baseline Discharge Orders: Discharge Order (Routine); Ordered 07/29/20 Ordered By: Juno MOORE VTE Deep Vein Thrombosis/Pulmonary Embolism Present on Admission: No
== END 2020-07-29 14:40 | disposition home or self-care (01) | DRG 193 ==
LOC: ED 06:41 → ICU 14:40 → ED 14:42 → MEDSUR 22:34
PROVIDERS: ADMIT Internal Medicine; ATTEND Internal Medicine